=== PATIENT | female | born 1985 | race Caucasian/White ===

== ENCOUNTER → 2017-07-13 | Outpatient (CLI) | payer OTHER ==
[~2017-07-13] MED LIST: AMOXICILLIN875 MG PO; AMOXIL500 MG PO; NOMEDS XX; PROTONIX 40MG T40 MG PO; TAMIFLU75 MG PO
== END ==
LOC: SL 13:36
DX: G47.10 Hypersomnia, unspecified (principal); R06.83 Snoring; R51 Headache; E66.9 Obesity, unspecified